=== PATIENT | female | born 1955 | race American Indian/Alaskan Native ===

== ENCOUNTER 2018-04-12 10:26 | Outpatient (CLI) | payer OTHER | END 2018-04-12 11:58 | disposition HB | LOC: LAB 10:26 | DX: E03.8 Other specified hypothyroidism (principal); E78.49 Other hyperlipidemia ==

== ENCOUNTER 2018-04-12 10:49 | Outpatient (CLI) | payer OTHER | END 2018-04-12 11:02 | disposition home or self-care (01) | LOC: MAMO-SONO 10:49 → NUCLEAR 10:49 → MAMO-SONO 11:02 | DX: Z00.01 Encounter for general adult medical examination with abnormal findings (principal); Z12.31 Encounter for screening mammogram for malignant neoplasm of breast ==